=== PATIENT | female | born 2005 | race Two or more races ===

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

== ENCOUNTER 2025-03-02 20:55 | Emergency (ER) | payer OTHER ==
[2025-03-02 21:07] VITALS: BP 119/65; PULSE 85; RESP 18; TEMP 98.1; BMI 29.2
[2025-03-02] MEDS ORDERED: IBUPROFEN 400 MG TABLET (FP) PO ONE (22:08)
[2025-03-02] MEDS: IBUPROFEN 400 MG TABLET (FP) PO ONE (22:10)
== END 2025-03-02 22:59 | disposition home or self-care (01) ==
LOC: JERFT 20:55 → JER 20:55 → JERFT 22:59
DX: M79.672 Pain in left foot (principal)
CPT/HCPCS: 73610-TC-LT-FY; 73630-TC-LT; 99283-25